=== PATIENT | male | born 1970 | race Caucasian/White ===

== ENCOUNTER → 2016-11-27 | Outpatient (CLI) | payer OTHER ==
--- NOTE | 2016-11-27 17:00 | US ---
EXAM DESCRIPTION: Liver: ULTRASOUND. CLINICAL HISTORY: ELEVATED LFT'S. Previous cholecystectomy. COMPARISON: CT abdomen and pelvis 07/25/2015. TECHNIQUE: Transabdominal scannin-dimensional and Doppler modes. FINDINGS: The gallbladder is surgically absent. No fluid in the gallbladder fossa. Common bile duct caliber is 6.8 mm which is physiologically dilated secondary to cholecystectomy. No stones in the visualized portion of the duct. Not tender with transducer pressure. The liver demonstrates increased echogenicity; contour of the liver capsule is smooth where seen. No fluid around the liver. Intrahepatic biliary ducts are non-dilated. Craniocaudal dimension in the mid-clavicular axis is 15.8 cm. Pancreas head, body, tail normal in size and echogenicity. Pancreatic duct is not dilated. Normal Doppler vascularity in the lennie hepatis. Abdominal aorta proximal 2.1 cm. IVC visualized and normal caliber. Right kidney measures 10.9 x 5.3 x 6.3 cm. Normal mid renal cortical thickness. Echogenicity normal with no hydronephrosis, no large calcifications, and no perinephric fluid. Contour smooth and vascularity normal. Proximal ureter not visualized. IMPRESSION: 1. Previous cholecystectomy. No fluid in the gallbladder fossa. Common bile duct is minimally dilated which is probably physiologic secondary to cholecystectomy. 2. Borderline hepatomegaly with fatty infiltration or steatosis. This can be a result of obesity and a variety of metabolic and toxic conditions. Normal ultrasound of the pancreas. 3. Normal ultrasound of the right kidney. Electronically signed by: North Bland MD 11/27/2016 4:59 PM CDT
== END | disposition home or self-care (01) ==
LOC: US 08:18
PROVIDERS: ATTEND Family Medicine
DX: R74.0 Nonspecific elevation of levels of transaminase and lactic acid dehydrogenase [LDH] (principal); R16.0 Hepatomegaly, not elsewhere classified

== ENCOUNTER → 2017-12-09 | Outpatient (CLI) | payer OTHER | LOC: GMAL 10:40 | PROVIDERS: ATTEND Family Medicine | DX: Z00.01 Encounter for general adult medical examination with abnormal findings (principal) ==

== ENCOUNTER → 2018-12-09 | Outpatient (CLI) | payer BC | LOC: GMAL 10:36 | PROVIDERS: ATTEND Family Medicine | DX: Z00.01 Encounter for general adult medical examination with abnormal findings (principal); E55.9 Vitamin D deficiency, unspecified; D51.3 Other dietary vitamin B12 deficiency anemia; R73.01 Impaired fasting glucose ==

== ENCOUNTER 2019-10-14 15:58 | Emergency (ER) | payer BC ==
[2019-10-14] MEDS ORDERED: LIDOCAINE 1% 10 ML VIAL INJ ONE (16:12)
[2019-10-14] MEDS ORDERED: TETANUS,DIPHTHERIA,PERTUSSIS 1 EA SYG IM ONE (16:21)
--- NOTE | 2019-10-14 16:23 | ED.PDOC ---
History of Present Illness - General Chief Complaint: Laceration Stated Complaint: 1 cm laceration to the R index finger Time Seen by Provider: 10/14/19 16:19 Additional Information: Patient is a 49-year-old male who presents the ED with chief complaint of laceration to his right index finger. [place] and he spotted a piece of broken glass in the water and went to retrieve the glass so that no one else would be hurt by it and in doing so he cut his finger. Patient has no other injuries. He is unaware of his last tetanus shot. Pain is only minimal. He has no other complaints today. - History of Present Illness Allergies/Adverse Reactions: Allergies NO KNOWN ALLERGY Allergy (Verified 10/14/19 16:19) Home Medications: Ambulatory Orders Lisinopril 30 mg PO DAILY 10/14/19 Review of Systems - Review of Systems Constitutional: States: no symptoms reported Respiratory: States: no symptoms reported Cardiology: States: no symptoms reported Gastrointestinal/Abdominal: States: no symptoms reported Skin: States: see HPI All other Systems: Reviewed and Negative Past Medical History (General) - Patient Medical History Hx Seizures: No Hx Stroke: No Hx Dementia: No Hx Asthma: No Hx of COPD: No Hx Cardiac Disorders: No Hx Congestive Heart Failure: No Hx Pacemaker: No Hx Hypertension: Yes Hx Thyroid Disease: No Hx Diabetes: No Hx Gastroesophageal Reflux: No Hx Renal Disease: No Hx Cancer: No Hx of HIV: No Hx Hepatitis C: No Hx MRSA: No Surgical History: appendectomy, cholecystectomy, other - Vaccination History Hx Tetanus, Diphtheria Vaccination: No Hx Influenza Vaccination: No Hx Pneumococcal Vaccination: No - Social History Hx Tobacco Use: Yes Hx Chewing Tobacco Use: Yes Hx Alcohol Use: Yes Hx Substance Use: No Hx Substance Use Treatment: No Hx Depression: No Hx Physical Abuse: No Hx Emotional Abuse: No Hx Suspected Abuse: No - Female History Patient is a Female of Child Bearing Age (10 -59 yrs old): No Patient : No Family Medical History - Family History Father Family History: Unknown Living Status: Still Living Hx Family Hypertension: Yes Hx Family Diabetes: Yes Hx Family;Other: diverticuli Physical Exam - Physical Exam General Appearance: Alert, Comfortable, No apparent distress, Well Developed, Well Nourished Respiratory: no respiratory distress Extremity: other - Full range of motion right index finger. Patient with a 1 cm laceration to the fingertip on the volar surface. Normal sensation to light touch distally. Neurologic: normal mood/affect Skin Exam: warm/dry Procedures - Laceration/Wound Repair Right Finger Wound's Depth, Shape: superficial, irregular Wound Explored: clean Irrigated w/ Saline (cc's): 50 Betadine Prep?: Yes Anesthesia: 1% Lidocaine Volume Anesthetic (cc's): 10 Wound Repaired With: sutures Suture Size/Type: 4:0, prolene Number of Sutures: 6 Layer Closure?: No Sterile Dressing Applied?: Yes Departure - Departure Clinical Impression: Laceration Time of Disposition: 16:56 Disposition: Discharge to Home or Self Care Condition: Good Departure Forms: ED Discharge - Pt. Copy, Patient Portal Self Enrollment Instructions: DI for Laceration Repair, Laceration Repair Referrals: Joe Nichole III, MD [Primary Care Provider] - 1-2 Weeks Home Medications: Ambulatory Orders Lisinopril 30 mg PO DAILY 10/14/19 Additional Instructions: Please see your doctor or return to the emergency department in 10 days to have sutures removed. You may wash your hands and shower tomorrow as accustomed.
[2019-10-14] MEDS ORDERED: NEOMYCIN-BACITRACIN-POLYMYXIN 0.9 GM UD TOP ONE (16:57)
[2019-10-14 17:31] VITALS: BP 136/79; TEMP 98; O2SAT 96
== END 2019-10-14 17:15 | disposition home or self-care (01) ==
LOC: ER 15:58
DX: S61.210A Laceration without foreign body of right index finger without damage to nail, initial encounter (principal); I10 Essential (primary) hypertension; Z79.899 Other long term (current) drug therapy; W25.XXXA Contact with sharp glass, initial encounter; Y92.828 Other wilderness area as the place of occurrence of the external cause